=== PATIENT | male | born 1960 | race Caucasian/White ===

== ENCOUNTER 2016-09-27 02:17 | Observation (INO) | payer SELFPAY ==
[2016-09-27] VITALS (9 sets, daily range): BP systolic 119–135; BP diastolic 78–81; PULSE 50–59; RESP 17–20; TEMP 98; Ht 177.8 cm; Wt 71.0 kg
[~2016-09-27] VITALS: Ht 177.8 cm; Wt 71.0 kg
[~2016-09-27 02:17] MED LIST: ASPI-664 PO; ATOR80TA75 PO; CLOP75TA28 PO; METO-448 PO; NIT4 SL
[2016-09-27] MEDS ORDERED: NITROGLYCERIN 2% 1 GM OINT PKT TD STA (02:37)
[2016-09-27 03:51] LABS: INR 0.96; PROTIME 12.8 Sec (12.2-14.2)
[2016-09-27 03:52] LABS: PARTIAL THROMBOPLASTIN TIME 31.6 Sec (25.0-35.0)
[2016-09-27 03:55] LABS: CHLORIDE 103 mmol/L (97-110); POTASSIUM 3.8 mmol/L (3.5-5.1); SODIUM 142 mmol/L (135-144)
[2016-09-27 03:58] LABS: ANION GAP 17 (8-16); BLOOD UREA NITROGEN 24 mg/dl (7-20); CARBON DIOXIDE 26 mmol/L (21-31); CREATININE 0.91 mg/dl (0.61-1.24); GLUCOSE 95 mg/dl (70-220)
[2016-09-27 03:59] LABS: CALCIUM 8.9 mg/dl (8.4-10.2)
[2016-09-27 04:00] LABS: BASOPHILS % 0.5 % (0.0-2.0); EOSINOPHILS # 0.1 10^3/ul (0.0-0.5); EOSINOPHILS % 1.6 % (0.0-7.0); HEMATOCRIT 40.8 % (42.0-52.0); HEMOGLOBIN 14.1 g/dl (14.0-18.0); LYMPHOCYTES # 1.8 10^3/ul (0.8-2.9); LYMPHOCYTES % 39.2 % (15.0-51.0); MEAN CORPUSCULAR HEMOGLOBIN 29.9 pg (29.0-33.0); MEAN CORPUSCULAR HGB CONC 34.6 g/dl (32.0-37.0); MEAN CORPUSCULAR VOLUME 86.6 fl (82.0-101.0); MONOCYTE # 0.5 10^3/ul (0.3-0.9); MONOCYTES % 10.9 % (0.0-11.0); NEUTROPHIL # 2.2 10^3/ul (1.6-7.5); NEUTROPHILS % 47.8 % (39.0-77.0); PLATELET COUNT 290 10^3/UL (140-440); RED BLOOD COUNT 4.71 10^6/ul (4.70-6.10); RED CELL DISTRIBUTION WIDTH 12.8 % (11.5-14.5); UNCORRECTED WBC 4.5 10^3/ul (4.8-10.8); WHITE BLOOD COUNT 4.5 10^3/ul (4.8-10.8)
[2016-09-27 04:01] LABS: CONDITION 1
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
[2016-09-27] MEDS ORDERED: SOD CHLORIDE 0.9% 1,000 ML IV SCH (04:12)
[2016-09-27 04:21] LABS: TROPONIN-I < 0.012 ng/ml (0.00-0.12)
[2016-09-27] MEDS ORDERED: ACETAMINOPHEN 325 MG TAB PO PRN ×2 (04:30→07:00)
[2016-09-27] MEDS ORDERED: ONDANSETRON 4 MG INJ IV PRN ×2 (04:30→07:00)
--- NOTE | 2016-09-27 04:38 | RADRPT ---
PROCEDURE: CHEST - 1 VIEW CLINICAL INDICATION: 56-year-old male with chest pain. TECHNIQUE: A single frontal AP view of the chest was performed portably. The images were reviewed on a PACS workstation. COMPARISON: Chest x-ray June 27, 2016. FINDINGS: The cardiomediastinal silhouette is within normal limits without significant interval change. There is no evidence for an infiltrate. There is no evidence for congestive heart failure. There is no e vidence for pneumothorax. The osseous structures are intact. IMPRESSION: No evidence for active cardiopulmonary disease. .Micha Leal MD, MD Date Time Electronically viewed and signed by .Micha Leal MD, MD on 09/27/2016 04:37 .Edilson/
[2016-09-27] MEDS ORDERED: NACL 0.9% 3 ML SYG IV SCH (07:00)
[2016-09-27] MEDS ORDERED: HYDROCODONE/APAP (5/325) TAB PO PRN (07:00)
[2016-09-27] MEDS ORDERED: morphine 2 MG INJ IV PRN (07:00)
[2016-09-27] MEDS ORDERED: NITROGLYCERIN (SL) 0.4 MG TAB SL PRN (07:00)
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
[2016-09-27] MEDS ORDERED: ASPIRIN (EC) 81 MG TAB PO SCH (09:00)
[2016-09-27] MEDS ORDERED: METOPROLOL 25 MG TAB PO SCH (09:00)
[2016-09-27] MEDS ORDERED: CLOPIDOGREL 75 MG TAB PO SCH (09:00)
--- NOTE | 2016-09-27 09:43 | QN ---
Documentation Comment The patient was seen and examined. Interviewed the patient with the help of a certified direct marketing manager. Called a cardiology consult since the patient has a prior history of ST elevation PA with stent placement to RCA in June 2016. The patient has no outpatient cardiology follow-up. Case discussed with . SELIN SIMMS NP Sep 27, 2016 09:43
[2016-09-27] MEDS ORDERED: hydrALAzine 20 MG INJ IV PRN (10:00)
--- NOTE | 2016-09-27 15:03 | CONS ---
DATE OF ADMISSION: 09/27/2016 DATE OF CONSULTATION: 09/27/2016 HISTORY OF PRESENT ILLNESS: Mr. Magallanes is a 56-year-old gentleman. He was admitted here in [facility] at which time he underwent primary PCI for ST elevation myocardial infarction of a right coronar y artery. A drug-eluting stent was placed. Today, he presents with a substernal chest pain lasting approximately 10 minutes, began at rest. He is active. He reports no difficulty breathing or chest pain with exertion. PAST MEDICAL HISTORY: 1. ST elevation myocardial infarction, status post PCI in 2016. 2. Dyslipidemia. 3. Hypertension. MEDICATIONS: 1. Aspirin. 2. Plavix. 3. Lipitor. 4. Metoprolol. 5. Nitroglycerin. The patient reports that he is compliant with all medications. ALLERGIES: NO KNOWN ALLERGIES. FAMILY HISTORY: Noncontributory. SOCIAL HISTORY: Denies alcohol or tobacco use. REVIEW OF SYSTEMS: A complete review of systems negative except as per HPI. PHYSICAL EXAMINATION: GENERAL: He is in no distress. VITAL SIGNS: Temperature 98.8, pulse 59, blood pressure 119/70, oxygen saturation 99% on room air. NECK: There is no jugular venous distention. LUNGS: Clear to auscultation bilaterally. Neck is supple. CARDIAC: Regular rate and rhythm. ABDOMEN: Soft, nontender, nondistended. EXTREMITIES: Reveal no clubbing, cyanosis, or edema. LABORATORY RESULTS: Reviewed. White count 4.5, hematocrit 40, sodium 142, BUN 24, creatinine 0.9. Troponin negative x2. EKG reviewed, showed sinus rhythm with no ST changes. ASSESSMENT: In summary, patient presents with highly atypical chest pain. There appears to be a re producible component to the chest pain on examination. He has been compliant with aspirin and Plavi x and enzymes are negative. I do not believe if further workup is necessary. He should be followed as an outpatient by Dr. Rao who performed the primary intervention during last admission. Thank you very much for this consultation. Dictated By: MORELIA HERNANDEZ/YAMILETH Conf#: [id number] DID#: [id number]
--- NOTE | 2016-09-27 16:31 | PDOCDIS ---
Discharge Instructions DIAGNOSIS Discharge Diagnosis: Atypical chest pain. CONDITION Patient Condition: Stable HOME CARE INSTRUCTIONS: Diet Instructions: Low Fat /Cholesterol FOLLOW UP/APPOINTMENTS Appointments Corby Hemphill MD Specialty: Internal Medicine Office Address: [address] [place], [place] [id number] Office OTHER ORDERS: Other Orders: 1. Take a low-cholesterol diet. 2. Resume home medications. 3. Follow-up with your primary care physician in 2 weeks. Please arrange with your primary care physician for outpatient cardiology follow-up. If you do not have a primary care physician, please call Dr. Corby Hemphill's office. 4. Resume activities as tolerated. 5. Please call 911 or go to the nearest emergency room if you have any significant chest pain. SELIN SIMMS NP Sep 27, 2016 16:31
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
[2016-09-27] MEDS ORDERED: ATORVASTATIN 80 MG TAB PO SCH (21:00)
== END 2016-09-27 18:30 | disposition home or self-care (01) ==
LOC: E/R 02:17 → TEL 04:12 → E/R 06:05
PROVIDERS: ADMIT Internal Medicine; ATTEND Internal Medicine
DX: R07.89 Other chest pain (principal); I10 Essential (primary) hypertension; I25.10 Atherosclerotic heart disease of native coronary artery without angina pectoris; Z95.5 Presence of coronary angioplasty implant and graft; E78.5 Hyperlipidemia, unspecified; I25.2 Old myocardial infarction; Z87.891 Personal history of nicotine dependence; Z79.82 Long term (current) use of aspirin; Z79.02 Long term (current) use of antithrombotics/antiplatelets
CPT/HCPCS: 36415; 71010; 80048; 84484; 85025; 85610; 85730; 93005; 99285; G0378; J7030

== ENCOUNTER 2018-07-23 00:22 | Inpatient (IN) | END 2018-07-23 14:45 | disposition home or self-care (01) | DRG 392 ==

== ENCOUNTER 2019-03-12 19:59 | Emergency (ER) | payer OTHER ==
[~2019-03-12] VITALS: Ht 170.2 cm; Wt 73.7 kg
[~2019-03-12 19:59] MED LIST changes: -ASPI-664 PO; +ASPI81TA50 PO; +ATOR10TA65 PO; -ATOR80TA75 PO; +CLOP75TA19 PO; -CLOP75TA28 PO; +LORA-441 PO; +METO-335 PO; -METO-448 PO; -NIT4 SL; +NITR0.4T32 SL; +PANT40TA4 PO; +SUCR1TAB56 PO
[2019-03-12 20:00] VITALS: BP 163/95; PULSE 92; RESP 18; Ht 170.2 cm; Wt 73.7 kg
[2019-03-12] MEDS ORDERED: DIPHTH/TET/ACEL PERTUSS (ADULT) 0.5 ML VIAL IM* ONE (21:00)
[2019-03-12] MEDS ORDERED: IBUP-1542 PO (21:03)
[2019-03-12] MEDS ORDERED: AMOX1TAB10 PO (21:03)
--- NOTE | 2019-03-12 21:07 | ERD ---
ER Documentation Chief Complaint Chief Complaint dog bite to left lower leg x 45 minutes ago HPI 58-year-old male sustained a dog bite through his pants on the left calf today by a neighbor's dog. He has no bleeding, lacerations. He has some abrasions. Tetanus is not up-to-date. ROS All systems reviewed and are negative except as per history of present illness. Medications Home Meds Active Scripts Ibuprofen* (Motrin*) 600 Mg Tab, 600 MG PO Q6, #15 TAB Prov:GT VUONG MD 03/12/19 Amoxicillin/Potassium Clav (Amox-Clav 875-125 mg Tablet) 875-125 mg Tab, 1 TAB PO BID for 7 Days, #20 TAB Prov:GT VUONG MD 03/12/19 Sucralfate* (Carafate*) 1 Gm Tab, 1 GM PO Q6, #40 TAB Prov:BRENDEN CONNER 07/23/18 Pantoprazole* (Pantoprazole*) 40 Mg Tablet.dr, 40 MG PO QAM for 30 Days, #30 1 Refill Alternatives: Omeprazole 20 mg 1 tab po qam #30, 1 refill Prov:BRENDEN CONNER 07/23/18 Reported Medications Lorazepam* (Ativan*) 0.5 Mg Tablet, 0.5 MG PO HS PRN for ANXIETY, #30 TAB 07/22/18 Atorvastatin Calcium (Atorvastatin Calcium) 10 Mg Tablet, 10 MG PO QHS, #30 TAB 07/22/18 Metoprolol Succinate* (Toprol XL*) 25 Mg Tab.sr.24h, 25 MG PO DAILY, #30 TAB 07/22/18 Clopidogrel Bisulfate* (Clopidogrel Bisulfate*) 75 Mg Tablet, 75 MG PO DAILY, #30 TAB 07/22/18 Nitroglycerin* (Nitroglycerin* SL) 0.4 Mg Tab.subl, 0.4 MG SL Q5MIN PRN for CHEST PAIN, BOTTLE 07/22/18 Aspirin (Aspir-Low) 81 Mg Tablet.dr, 81 MG PO DAILY 07/22/18 Allergies Allergies: Coded Allergies: No Known Allergies (Verified Allergy, Unknown, 07/23/18) PMhx/Soc History of Surgery: Yes (cardiac stent ) Anesthesia Reaction: No Hx Neurological Disorder: No Hx Respiratory Disorders: No Hx Cardiac Disorders: Yes (HTN, CAD with stent) Hx Psychiatric Problems: No Hx Miscellaneous Medical Probl: Yes Hx Alcohol Use: No Hx Substance Use: No Hx Tobacco Use: No FmHx Family History: No diabetes, No coronary disease, No other Physical Exam Vitals Vital Signs Date Temp Pulse Resp B/P (MAP) Pulse Ox O2 O2 Flow FiO2 Time Delivery Rate 03/12/19 97.6 92 18 163/95 97 20:00 (117) Physical Exam Const: No acute distress Head: Atraumatic Eyes: Normal Conjunctiva ENT: Normal External Ears, Nose and Mouth. Neck: Full range of motion. No meningismus. Resp: Clear to auscultation bilaterally Cardio: Regular rate and rhythm, no murmurs Abd: Soft, non tender, non distended. Normal bowel sounds Skin: No petechiae or rashes Back: No midline or flank tenderness Ext: No cyanosis, or edema left calf with circular area of abrasions without active bleeding or lacerations through the dermis. There is no erythema, streaking. No deformities. Patient ambulates without discomfort. Neur: Awake and alert Psych: Normal Mood and Affect Results 24 hrs Current Medications Medications Dose Sig/Rhoda Start Time Status Last (Trade) Ordered Route PRN Stop Time Admin Dose Reason Admin Diphtheria/ 0.5 ml ONCE ONCE 03/12/19 DC Tetanus/Acell IM* 21:00 Pertussis 03/12/19 21:03 (Adacel) Procedures/MDM Patient given a tetanus booster. Patient presents with dog bite on the left calf. Concern is low for rabies. There is no signs of infection, deficits, additional concerning complications. Patient will be treated with Augmentin, recommendations for wound care and return precautions for redness, fevers, new or worsening symptoms. The patient was stable with no new complaints during the ER course. Clinically, there is no current evidence to suggest meningitis, sepsis, acute abdomen, pneumonia, stroke, acute coronary syndrome, pulmonary embolism, aortic dissection or any other emergent condition appearing to require further evaluation or hospitalization. Patient counseled regarding my diagnostic impression and care plan. Prior to discharge all questions answered. Pt agrees with treatment plan and understands strict return precautions. Pt is i nstructed to follow up with primary care provider within 24-48 hours. Precautionary instructions provided including instructions to return to the ER if not improving or for any worsening or changing symptoms or concerns. Disclaimer: Inadvertent spelling and grammatical errors are likely due to EHR/dictation software use and do not reflect on the overall quality of patient care. Also, please note that the electronic time recorded on this note does not necessarily reflect the actual time of the patient encounter. Departure Diagnosis: Primary Impression: Bite by animal Condition: Stable Patient Instructions: Dog Bite Referrals: [facility] (PCP) Additional Instructions: Examines normal hoy. Cheque otro vez con cam doctor primario en el proximo francisco or regresa para mas o nueva simptomas- pita burroughs KEVIN N. MD Mar 12, 2019 21:07
== END 2019-03-12 22:30 | disposition home or self-care (01) ==
LOC: FTE 19:59
DX: S81.852A Open bite, left lower leg, initial encounter (principal); I10 Essential (primary) hypertension; I25.10 Atherosclerotic heart disease of native coronary artery without angina pectoris; W54.0XXA Bitten by dog, initial encounter; Y92.9 Unspecified place or not applicable; Z98.61 Coronary angioplasty status; Z79.01 Long term (current) use of anticoagulants; Z79.82 Long term (current) use of aspirin; Z23 Encounter for immunization
CPT/HCPCS: 90471; 90715; Z7502